=== PATIENT | male | born 1995 | race Caucasian/White ===

== ENCOUNTER 2017-06-12 00:57 | Emergency (ER) | payer OTHER ==
[~2017-06-12] VITALS: Ht 180.3 cm; Wt 118.2 kg
[~2017-06-12 00:57] MED LIST: ALBU17AE2 IH; IBUP-1681 PO
[2017-06-12 03:10] VITALS: BP 121/60
== END 2017-06-12 03:23 | disposition home or self-care (01) ==
LOC: EMS 01:00
DX: R06.02 Shortness of breath (principal); J45.909 Unspecified asthma, uncomplicated
CPT/HCPCS: 71020; 99284

== ENCOUNTER 2018-10-14 10:13 | Emergency (ER) | payer SELFPAY ==
[~2018-10-14] VITALS: Ht 177.8 cm; Wt 122.7 kg
[~2018-10-14 10:13] MED LIST changes: -IBUP-1681 PO
[2018-10-14 12:45] VITALS: BP 129/66
== END 2018-10-14 12:57 | disposition home or self-care (01) ==
LOC: EMS 10:14
DX: S40.861A Insect bite (nonvenomous) of right upper arm, initial encounter (principal); L03.113 Cellulitis of right upper limb; W57.XXXA Bitten or stung by nonvenomous insect and other nonvenomous arthropods, initial encounter; Y93.89 Activity, other specified; Y92.89 Other specified places as the place of occurrence of the external cause; Y99.8 Other external cause status